=== PATIENT | male | born 2000 | race Caucasian/White ===

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

== ENCOUNTER 2018-02-09 23:44 | Emergency (ER) | payer MEDICAID ==
[2018-02-10 00:25] VITALS: BP 140/84
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
[2018-02-10] MEDS: Ketorolac 60 MG/2 ML SDV IM ONE (00:41)
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
== END 2018-02-10 00:52 | disposition home or self-care (01) ==
LOC: FB.ED 23:44
DX: S62.326A Displaced fracture of shaft of fifth metacarpal bone, right hand, initial encounter for closed fracture (principal); F17.210 Nicotine dependence, cigarettes, uncomplicated; W22.8XXA Striking against or struck by other objects, initial encounter
CPT/HCPCS: 29125; 73130-RT; 96372; 99283; J1885

== ENCOUNTER 2020-08-21 18:46 | Emergency (ER) | payer MEDICAID ==
[2020-08-21 19:15] VITALS: BP 134/93; PULSE 98
[2020-08-21] MEDS: Ketorolac 60 MG/2 ML SDV IM ONE (19:57)
[2020-08-21] MEDS: Cyclobenzaprine 10 MG Tab PO ONE (20:10)
--- NOTE | 2020-08-21 20:11 | EDM.PDOC ---
ED HPI GENERAL MEDICAL PROBLEM - General Chief Complaint: Back Pain or Injury Stated Complaint: BACK PAIN Time Seen by Provider: 08/21/20 19:20 Source of Information: Reports: Patient History Limitations: Reports: No Limitations - History of Present Illness INITIAL COMMENTS - FREE TEXT/NARRATIVE: states he woke up on germán ryann and felt pain in the upper back on the right , has progressively gotten worse worse with attempts to lift arm uppers pt denies any injury , denies any fall , no prior injury to the area has been noted in the past Onset: Today, Gradual Onset Date: 08/16/20 Duration: Getting Worse Location: Reports: Upper Extremity, Right Quality: Reports: Ache, Dull Severity: Moderate Improves with: Reports: None Worsens with: Reports: None Associated Symptoms: Reports: No Other Symptoms 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: None Musculoskeletal History: Reports: Other (See Below) Other Musculoskeletal History: recent fx of both heels Neurological History: Reports: None Psychiatric History: Reports: None Endocrine/Metabolic History: Reports: None Hematologic History: Reports: None Immunologic History: Reports: None Oncologic (Cancer) History: Reports: None Dermatologic History: Reports: None - Past Surgical History Head Surgeries/Procedures: Reports: None HEENT Surgical History: Reports: Oral Surgery Cardiovascular Surgical History: Reports: None Respiratory Surgical History: Reports: None GI Surgical History: Reports: None Male Surgical History: Reports: None Endocrine Surgical History: Reports: None Neurological Surgical History: Reports: None Musculoskeletal Surgical History: Reports: None Oncologic Surgical History: Reports: None Dermatological Surgical History: Reports: None Social & Family History - Family History Family Medical History: No Pertinent Family History - Tobacco Use Tobacco Use Status *Q: Current Every Day Tobacco User Years of Tobacco use: 1 Packs/Tins Daily: 4 - Caffeine Use Caffeine Use: Reports: Soda - Recreational Drug Use Recreational Drug Use: No ED ROS GENERAL - Review of Systems Review Of Systems: Comprehensive ROS is negative, except as noted in HPI. ED EXAM, UPPER BACK/NECK PAIN - Physical Exam Exam: See Below Exam Limited By: No Limitations General Appearance: Alert, WD/WN, No Apparent Distress Ears Exam: Normal External Exam, Normal TMs Nose Exam: Normal Inspection, Normal Mucousa Throat/Mouth Exam: Normal Oropharynx Head Exam: Atraumatic, Normocephalic Neck Exam: Non-Tender, Full Range of Motion Nexus Criteria: No: Posterior, Midline Cervical Tenderness, Evidence of Intoxication, Altered Level of Consciousness, Focal Neurological Deficit, Painful Distraction Injuries Cardiovascular/Respiratory: Regular Rate, Rhythm GI/Abdominal: Normal Bowel Sounds, Soft, Non-Tender Back Exam: Muscle Spasm, Paraspinal Tenderness (in jonel right thoracic area, worse with attempts to lift the hand / arm upwards). No: CVA Tenderness (R), CVA Tenderness (L) Neurologic: No Motor/Sensory Deficits, Alert, Normal Mood/Affect, Oriented x 3 Psychiatric: Normal Affect Course - Vital Signs Last Recorded V/S: Last Vital Signs Temp 36.7 C 08/21/20 19:12 Pulse 98 08/21/20 19:12 Resp 20 08/21/20 19:12 BP 134/93 H 08/21/20 19:12 Pulse Ox 100 08/21/20 19:12 - Orders/Labs/Meds Meds: Medications Discontinued Medications Generic Name Dose Route Start Last Admin Trade Name Callum PRN Reason Stop Dose Admin Cyclobenzaprine HCl 10 mg 08/21/20 20:05 08/21/20 20:10 Flexeril PO 08/21/20 20:06 10 mg ONETIME ONE Administration Ketorolac Tromethamine 60 mg 08/21/20 19:53 08/21/20 19:57 Toradol IM 08/21/20 19:54 60 mg ONETIME ONE Administration - Re-Assessments/Exams Free Text/Narrative Re-Assessment/Exam: 08/21/20 20:13 pt given toradol and flexeril Departure - Departure Time of Disposition: 20:15 Disposition: Home, Self-Care 01 Condition: Good Clinical Impression: Spasm of thoracic back muscle, Intercostal muscle pain - Discharge Information *PRESCRIPTION DRUG MONITORING PROGRAM REVIEWED*: Not Applicable *COPY OF PRESCRIPTION DRUG MONITORING REPORT IN PATIENT CATHERINE: Not Applicable Prescriptions: Cyclobenzaprine [Flexeril] 10 mg PO BID #20 tab Naproxen 500 mg PO BID #30 tablet Instructions: Muscle Cramps and Spasms, [id number], Back Injury Prevention, [id number] Referrals: PCP,None [Primary Care Provider] - Forms: ED Department Discharge Additional Instructions: 1) Warm compress to the affected area 3 times daily 2) If pain persists , you will need to do physical therapy or see a chiropractor 3) make appointment to follow up with your PCP Sepsis Event Note (ED) - Evaluation Sepsis Screening Result: No Definite Risk - Focused Exam Vital Signs: Vital Signs Temp Pulse Resp BP Pulse Ox 08/21/20 19:12 36.7 C 98 20 134/93 H 100
== END 2020-08-21 20:17 | disposition home or self-care (01) ==
LOC: FB.ED 18:46
DX: M62.830 Muscle spasm of back (principal); R07.82 Intercostal pain; J45.909 Unspecified asthma, uncomplicated; F17.210 Nicotine dependence, cigarettes, uncomplicated
CPT/HCPCS: 96372; 99283; A9270-GY; J1885

== ENCOUNTER 2023-08-09 22:00 | Emergency (ER) | payer SELFPAY ==
[2023-08-09] MEDS ORDERED: Lidocaine 2% 20 ML MDV INFILT ONE (22:01)
[2023-08-09] MEDS ORDERED: Cephalexin 500 MG Cap PO ONE (23:10)
[2023-08-10 00:41] VITALS: BP 130/67; PULSE 70
== END 2023-08-10 00:10 | disposition home or self-care (01) ==
LOC: FB.ED 22:00
DX: S62.631A Displaced fracture of distal phalanx of left index finger, initial encounter for closed fracture (principal); S61.211A Laceration without foreign body of left index finger without damage to nail, initial encounter; F17.210 Nicotine dependence, cigarettes, uncomplicated; W31.2XXA Contact with powered woodworking and forming machines, initial encounter
CPT/HCPCS: 12002; 73140; 99283; A9270